=== PATIENT | female | born 1990 | race Caucasian/White ===

== ENCOUNTER 2018-05-28 02:15 | Emergency (ER) | payer MEDICAID ==
[~2018-05-28] VITALS: Ht 147.3 cm; Wt 54.4 kg
[2018-05-28 02:19] VITALS: BP_SYST 119
--- NOTE | 2018-05-28 02:19 | NUR ---
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
--- NOTE | 2018-05-28 02:31 | NUR ---
ER at bedside examining patient.
[2018-05-28 02:43] VITALS: BP_SYST 119
--- NOTE | 2018-05-28 02:43 | NUR ---
Patient given written and verbal discharge instructions and verbalizes understanding. ER MD Dr. Barros discussed with patient the results and treatment provided. Patient in stable condition. ID arm band removed. Patient educated on pain management and to follow up with PMD. Pain Scale 0/10. Opportunity for questions provided and answered. Medication side effect fact sheet provided.
[2018-05-28] MEDS ORDERED: IBUPROFEN 800 MG TABLET PO ONE (02:45)
== END 2018-05-28 02:43 ==
LOC: SED 02:15
DX: Z02.89 Encounter for other administrative examinations (principal)
CPT/HCPCS: 99283